=== PATIENT | male | born 1955 | race Caucasian/White ===

== ENCOUNTER 2022-03-04 13:28 | Emergency (ER) | payer MEDICARE ==
[~2022-03-04] VITALS: Ht 177.8 cm; Wt 113.0 kg
[2022-03-04 13:51] VITALS: BP 160/80
[2022-03-04] MEDS ORDERED: AMOX-117 PO (15:05)
[2022-03-04] MEDS ORDERED: ALBU8HFA PO (15:05)
[2022-03-04] MEDS ORDERED: PRED20TA PO (15:05)
== END 2022-03-04 15:39 | disposition home or self-care (01) ==
LOC: ER 13:28
DX: J20.9 Acute bronchitis, unspecified (principal); Z79.899 Other long term (current) drug therapy
CPT/HCPCS: 99283